=== PATIENT | male | born 1990 | race Caucasian/White ===

== ENCOUNTER 2018-05-15 18:49 | Emergency (ER) | payer SELFPAY ==
[~2018-05-15] VITALS: Ht 170.1 cm; Wt 81.6 kg
[2018-05-15] MEDS ORDERED: AMOXICILLIN500 M2 PO (19:01)
[2018-05-15] MEDS ORDERED: NAPROSYN500 MG PO (19:01)
== END 2018-05-15 18:56 | disposition home or self-care (01) ==
LOC: ED 18:49
DX: K02.9 Dental caries, unspecified (principal)